=== PATIENT | female | born 1940 | race Caucasian/White ===

== ENCOUNTER 2017-08-03 05:30 | Inpatient (IN) | payer MEDICARE, OTHER ==
[2017-08-03] MEDS ORDERED: BUPIVACAINE 0.5% (SDV) 30 ML, morphine SULFATE (PF) 8 MG, EPINEPHrine 0.3 MG, KETOROLAC... IRR (06:00)
[2017-08-03] MEDS ORDERED: CEFAZOLIN 2 GM/50 ML (PMX) 50 ML IVPB (06:00)
[2017-08-03] MEDS ORDERED: TRANEXAMIC ACID 1,000 MG in DEXTROSE 5% 100 ML IVPB (06:00)
[2017-08-03] MEDS: DEXAMETHASONE 1 MG TAB PO (06:37)
[2017-08-03] MEDS ORDERED: BUPIVACAINE 0.5%/EPI (SDV) 30 ML INJ (06:42)
[2017-08-03] MEDS ORDERED: THROMBIN 5000 UNIT VIAL (06:42)
[2017-08-03] MEDS ORDERED: CA CHLORIDE 10% 10 ML SYRINGE (06:42)
[2017-08-03] MEDS ORDERED: MIDAZOLAM 1 MG/ML 2 ML INJ (06:56)
[2017-08-03] MEDS ORDERED: ROPIVACAINE 0.5 % 30 ML VIAL (06:59)
[2017-08-03] MEDS ORDERED: GLYCOPYRROLATE 0.4 MG INJ (07:00)
[2017-08-03] MEDS ORDERED: NEOSTIGMINE 3 MG/3 ML SYRINGE (07:00)
[2017-08-03] MEDS: POLYMYXIN/BACITRACIN 1L IRRIG (07:32)
[2017-08-03] MEDS ORDERED: ROCURONIUM 50 MG INJ (08:08)
[2017-08-03] MEDS ORDERED: LIDOCAINE 2% (SDV) 5 ML INJ (08:08)
[2017-08-03] MEDS ORDERED: ETOMIDATE 20 MG INJ (08:08)
[2017-08-03] MEDS ORDERED: ONDANSETRON 4 MG INJ (08:09)
[2017-08-03] MEDS ORDERED: CEFAZOLIN 1 GM INJ (08:28)
[2017-08-03] MEDS ORDERED: ZOLPIDEM 5 MG TAB PO (08:30)
[2017-08-03] MEDS ORDERED: morphine 2 MG INJ IV ×2 (08:30)
[2017-08-03] MEDS ORDERED: hydrALAzine 20 MG INJ (08:39)
[2017-08-03] MEDS: hydrALAzine 20 MG INJ IV (08:47)
[2017-08-03] MEDS: KETOROLAC 15 MG INJ IV (08:48)
[2017-08-03] MEDS: CEFAZOLIN 1 GM/50 ML (PMX) 50 ML IVPB ×2 (08:57→15:43)
[2017-08-03] MEDS ORDERED: GLUCAGON 1 MG INJ IM (09:00)
[2017-08-03] MEDS ORDERED: FENTAnyl 50 MCG/ML VIAL IV (09:00)
[2017-08-03] MEDS ORDERED: LOXAPINE SUCCINATE 25 MG CAPSULE PO (09:00)
[2017-08-03] MEDS ORDERED: DEXTROSE 50% 50 ML SYRINGE IV ×2 (09:00)
[2017-08-03] MEDS ORDERED: GLUCOSE GEL 15 GRAM TUBE PO ×2 (09:00)
[2017-08-03] MEDS ORDERED: MEPERIDINE 25 MG INJ IV (09:00)
[2017-08-03] MEDS ORDERED: SERTRALINE 50 MG TAB PO (09:00)
[2017-08-03] MEDS ORDERED: DIPHENHYDRAMINE 50 MG INJ IV (09:00)
[2017-08-03] MEDS ORDERED: GLUCOSE GEL 15 GRAM TUBE BUCCAL (09:00)
[2017-08-03] MEDS: metFORMIN 500 MG TAB PO ×2 (09:00→18:41)
[2017-08-03] MEDS ORDERED: HYDROmorphONE 1 MG/5 ML IV SYRINGE IV (09:00)
[2017-08-03] MEDS: PRIMIDONE 50 MG TAB PO ×2 (09:00→21:45)
[2017-08-03] MEDS ORDERED: ONDANSETRON 4 MG INJ IV (09:00)
[2017-08-03] MEDS: TRANEXAMIC ACID 1,000 MG in DEXTROSE 5% 100 ML IV (09:10)
[2017-08-03] MEDS: ONDANSETRON 4 MG INJ IV (10:17)
[2017-08-03] MEDS: PANTOPRAZOLE SODIUM 20 MG TABEC PO (10:36)
[2017-08-03] MEDS: DIPHENHYDRAMINE 50 MG INJ IV (10:47)
[2017-08-03] MEDS: HYDROmorphONE 0.5 MG/0.5 ML SYG IV ×2 (11:36→15:43)
[2017-08-03] MEDS: DEXAMETHASONE 2 MG TAB PO ×2 (13:14→18:39)
[2017-08-03] MEDS: ACETAMINOPHEN 500 MG TAB PO (13:14)
[2017-08-03] MEDS: GABAPENTIN 100 MG CAP PO ×2 (14:39→20:30)
[2017-08-03] MEDS: SENNA/DOCUSATE NA (8.6MG/50MG) TAB PO ×2 (14:39→20:32)
[2017-08-03] MEDS: Discontinue current oral sulfonylureas (glyburide, glipizide, and/or glimepiride) prior to XX (16:30)
[2017-08-03] MEDS: HYPOGLYCEMIA PROTOCOL when Glucose is <70 mg/dL or symptomatic <90 mg/dL. XX (16:30)
[2017-08-03] MEDS: CARBOXYMETHYLCELLULOSE 0.5% 0.1 ML OPH BOTH EYES ×2 (17:00→20:29)
[2017-08-03] MEDS: INSULIN ASPART [NOVOLOG] 3 ML PEN SC ×2 (17:55→21:00)
[2017-08-03] MEDS: CALCIUM CARBONATE 500 MG CHEW TAB PO (18:39)
[2017-08-03] MEDS: PANTOPRAZOLE (EC) 40 MG TAB PO (18:39)
[2017-08-03] MEDS: SUCRALFATE 1 GM TAB PO ×2 (18:40→20:31)
[2017-08-03] MEDS ORDERED: GABAPENTIN 300 MG CAP PO ×2 (18:55→21:00)
[2017-08-03] MEDS: OXYCODONE/ACETAMINOPHEN (5/325) TAB PO (19:33)
[2017-08-03] MEDS: LOXAPINE SUCCINATE 25 MG CAPSULE PO (20:29)
[2017-08-03] MEDS: ATORVASTATIN 10 MG TAB PO (20:31)
[2017-08-03] MEDS: SERTRALINE 50 MG TAB PO (20:31)
[2017-08-03] MEDS: ASCORBIC ACID 500 MG TAB PO (20:32)
[2017-08-03] MEDS: FERROUS SULFATE (EC) 325 MG TAB PO (20:32)
[2017-08-03] MEDS ORDERED: GABAPENTIN 100 MG CAP PO (21:00)
[2017-08-03] MEDS ORDERED: ATORVASTATIN 10 MG TAB PO (21:00)
[2017-08-04] MEDS: CEFAZOLIN 1 GM/50 ML (PMX) 50 ML IVPB (00:26)
[2017-08-04] MEDS: OXYCODONE/ACETAMINOPHEN (5/325) TAB PO ×4 (00:26→14:06)
[2017-08-04] MEDS: DEXAMETHASONE 2 MG TAB PO ×2 (00:26→05:09)
[2017-08-04] MEDS: ACCU-CHEK XX ×2 (00:37→22:02)
[2017-08-04 05:03] LABS: ADD MAN DIFF? NO
[2017-08-04 05:07] LABS: WHITE BLOOD COUNT 8.3 10^3/ul (4.8-10.8)
[2017-08-04 05:07] LABS: BASOPHILS % 0.2 % (0.0-2.0); EOSINOPHILS % 0.5 % (0.0-7.0); HEMATOCRIT 33.7 % (37.0-47.0); HEMOGLOBIN 11.1 g/dl (12.0-16.0); LYMPHOCYTES # 1.2 10^3/ul (0.8-2.9); LYMPHOCYTES % 13.9 % (15.0-51.0); MEAN CORPUSCULAR HEMOGLOBIN 30.7 pg (29.0-33.0); MEAN CORPUSCULAR HGB CONC 32.9 g/dl (32.0-37.0); MEAN CORPUSCULAR VOLUME 93.1 fl (82.0-101.0); MONOCYTE # 0.6 10^3/ul (0.3-0.9); MONOCYTES % 6.8 % (0.0-11.0); NEUTROPHIL # 6.5 10^3/ul (1.6-7.5); NEUTROPHILS % 78.1 % (39.0-77.0); PLATELET COUNT 167 10^3/UL (140-415); RED BLOOD COUNT 3.62 10^6/ul (4.20-5.40); RED CELL DISTRIBUTION WIDTH 13.2 % (11.5-14.5)
[2017-08-04 05:26] LABS: POSITIVE DIFF @See below
[2017-08-04 05:30] LABS: ALANINE AMINOTRANSFERASE 30 IU/L (13-69); ALBUMIN 2.9 g/dl (3.3-4.9); ALBUMIN/GLOBULIN RATIO 1.03; ALKALINE PHOSPHATASE 66 IU/L (42-121); ANION GAP 10 (8-16); ASPARTATE AMINO TRANSFERASE 19 IU/L (15-46); BILIRUBIN,INDIRECT 0.2 mg/dl (0-1.1); BILIRUBIN,TOTAL 0.2 mg/dl (0.2-1.3); BLOOD UREA NITROGEN 7 mg/dl (7-20); CARBON DIOXIDE 27 mmol/L (21-31); CHLORIDE 102 mmol/L (97-110); CHOL/HDL RATIO 3.1 RATIO; CHOLESTEROL 129 mg/dl (100-200); CREATININE 0.42 mg/dl (0.44-1.00); GLUCOSE 108 mg/dl (70-220); HDL CHOLESTEROL 41 mg/dl (33-92); LDL CHOLESTEROL,CALCULATED 73 mg/dl; MAGNESIUM 1.5 mg/dl (1.7-2.5); PHOSPHORUS 3.4 mg/dl (2.5-4.9); POTASSIUM 3.8 mmol/L (3.5-5.1); SODIUM 135 mmol/L (135-144); TOTAL PROTEIN 5.7 g/dl (6.1-8.1); TRIGLYCERIDES 76 mg/dl (0-149)
[2017-08-04 05:40] LABS: FREE THYROXINE INDEX (Calc) 4.13 ug/ml (0.65-3.89); T3 UPTAKE 47.5 % (23.5-40.5); T4 (THYROXINE) 8.7 ug/dl (5.5-11.0)
[2017-08-04 05:54] LABS: THYROID STIMULATING HORMONE 0.511 MIU/L (0.465-4.680)
[2017-08-04] MEDS: LEVOTHYROXINE 75 MCG TAB PO (06:30)
[2017-08-04] MEDS: PANTOPRAZOLE (EC) 40 MG TAB PO ×2 (06:30→18:21)
[2017-08-04 07:09] LABS: HEMOGLOBIN A1C 5.7 % (0-5.9)
[2017-08-04] MEDS: INSULIN ASPART [NOVOLOG] 3 ML PEN SC ×4 (07:50→21:00)
[2017-08-04] MEDS: KETOROLAC 15 MG INJ IV ×2 (07:55→18:47)
[2017-08-04] MEDS ORDERED: PANTOPRAZOLE (EC) 40 MG TAB PO (09:00)
[2017-08-04] MEDS: ASCORBIC ACID 500 MG TAB PO ×3 (09:06→21:00)
[2017-08-04] MEDS: FOLIC ACID 0.4 MG TAB PO (10:30)
[2017-08-04] MEDS: CYANOCOBALAMIN 500 MCG TAB PO (10:31)
[2017-08-04] MEDS: PRIMIDONE 50 MG TAB PO ×2 (10:32→20:30)
[2017-08-04] MEDS: MULTIVITAMINS THERAPEUTIC TAB PO (10:32)
[2017-08-04] MEDS: metFORMIN 500 MG TAB PO ×2 (10:33→18:16)
[2017-08-04] MEDS: FERROUS SULFATE (EC) 325 MG TAB PO ×2 (10:33→21:00)
[2017-08-04] MEDS: SUCRALFATE 1 GM TAB PO ×4 (10:33→20:31)
[2017-08-04] MEDS: ASPIRIN 81 MG TAB PO (10:33)
[2017-08-04] MEDS: LACTOBACILLUS RHAMNOSUS CAP PO (10:33)
[2017-08-04] MEDS: SENNA/DOCUSATE NA (8.6MG/50MG) TAB PO ×2 (10:33→22:55)
[2017-08-04] MEDS: CARBOXYMETHYLCELLULOSE 0.5% 0.1 ML OPH BOTH EYES ×4 (10:34→20:32)
[2017-08-04] MEDS: MAGNESIUM SULFATE 2 GM/50 ML 50 ML IVPB (12:16)
[2017-08-04] MEDS: GABAPENTIN 100 MG CAP PO ×2 (13:34→20:30)
[2017-08-04] MEDS: HYDROmorphONE 1 MG/ML SYG IV ×2 (15:20→22:56)
[2017-08-04] MEDS: MAGNESIUM HYDROXIDE 30ML CUP PO (15:21)
[2017-08-04] MEDS: DIPHENHYDRAMINE 50 MG INJ IV (18:47)
[2017-08-04] MEDS: DOCUSATE SODIUM 100 MG CAP PO (20:30)
[2017-08-04] MEDS: SERTRALINE 50 MG TAB PO (20:31)
[2017-08-04] MEDS: ATORVASTATIN 10 MG TAB PO (20:32)
[2017-08-04] MEDS: LOXAPINE SUCCINATE 25 MG CAPSULE PO (22:56)
[2017-08-05] MEDS: PANTOPRAZOLE (EC) 40 MG TAB PO (06:06)
[2017-08-05] MEDS: LEVOTHYROXINE 75 MCG TAB PO (06:06)
[2017-08-05] MEDS: KETOROLAC 15 MG INJ IV (06:06)
[2017-08-05] MEDS: MAGNESIUM HYDROXIDE 30ML CUP PO (06:06)
[2017-08-05] MEDS: INSULIN ASPART [NOVOLOG] 3 ML PEN SC ×2 (07:50→11:40)
[2017-08-05] MEDS: OXYCODONE/ACETAMINOPHEN (5/325) TAB PO (08:38)
[2017-08-05] MEDS: metFORMIN 500 MG TAB PO (08:38)
[2017-08-05] MEDS: LACTOBACILLUS RHAMNOSUS CAP PO (09:06)
[2017-08-05] MEDS: MULTIVITAMINS THERAPEUTIC TAB PO (09:06)
[2017-08-05] MEDS: PRIMIDONE 50 MG TAB PO (09:06)
[2017-08-05] MEDS: SENNA/DOCUSATE NA (8.6MG/50MG) TAB PO (09:06)
[2017-08-05] MEDS: FERROUS SULFATE (EC) 325 MG TAB PO (09:06)
[2017-08-05] MEDS: ASCORBIC ACID 500 MG TAB PO (09:06)
[2017-08-05] MEDS: DOCUSATE SODIUM 100 MG CAP PO (09:06)
[2017-08-05] MEDS: CYANOCOBALAMIN 500 MCG TAB PO (09:07)
[2017-08-05] MEDS: SUCRALFATE 1 GM TAB PO ×2 (09:08→13:07)
[2017-08-05] MEDS: ASPIRIN 81 MG TAB PO (09:08)
[2017-08-05] MEDS: CARBOXYMETHYLCELLULOSE 0.5% 0.1 ML OPH BOTH EYES ×2 (09:08→13:07)
[2017-08-05] MEDS: FOLIC ACID 0.4 MG TAB PO (09:08)
[2017-08-05] MEDS: NA PHOSPHATE/BIPHOS 133 ML ENEMA PR (09:49)
[2017-08-05] MEDS: MAGNESIUM CITRATE 300 ML BTL PO (11:34)
[2017-08-05] MEDS: GABAPENTIN 100 MG CAP PO (14:08)
[2017-08-05] MEDS: LACTULOSE 30ML CUP PO (14:08)
[2017-08-05] MEDS ORDERED: MINERAL OIL 133 ML ENEMA PR (16:00)
== END 2017-08-05 18:47 | disposition home or self-care (01) | DRG 483 ==
LOC: REC 05:30 → MS1 09:37
PROVIDERS: Orthopaedic Surgery
PROC: 0RRJ0J7 Replacement of Right Shoulder Joint with Synthetic Substitute, Glenoid Surface, Open Approach (ICD-10-PCS; principal; 2017-08-03 07:00)
PROC: 0RPJ0JZ Removal of Synthetic Substitute from Right Shoulder Joint, Open Approach (ICD-10-PCS; 2017-08-03 07:00)
DX: T84.098A Other mechanical complication of other internal joint prosthesis, initial encounter (principal); T84.84XA Pain due to internal orthopedic prosthetic devices, implants and grafts, initial encounter; E11.9 Type 2 diabetes mellitus without complications; E61.1 Iron deficiency; E78.5 Hyperlipidemia, unspecified; E11.40 Type 2 diabetes mellitus with diabetic neuropathy, unspecified; E03.9 Hypothyroidism, unspecified; E66.01 Morbid (severe) obesity due to excess calories; G25.81 Restless legs syndrome; G89.29 Other chronic pain; M54.9 Dorsalgia, unspecified; N31.9 Neuromuscular dysfunction of bladder, unspecified; N28.89 Other specified disorders of kidney and ureter; I10 Essential (primary) hypertension; I25.10 Atherosclerotic heart disease of native coronary artery without angina pectoris; R10.9 Unspecified abdominal pain; R19.7 Diarrhea, unspecified; R29.6 Repeated falls; W18.30XA Fall on same level, unspecified, initial encounter; Z68.35 Body mass index [BMI] 35.0-35.9, adult; Z96.611 Presence of right artificial shoulder joint; Z96.641 Presence of right artificial hip joint; Z98.1 Arthrodesis status; Z93.51 Cutaneous-vesicostomy status; Z95.5 Presence of coronary angioplasty implant and graft; Z85.41 Personal history of malignant neoplasm of cervix uteri; Z79.84 Long term (current) use of oral hypoglycemic drugs
CPT/HCPCS: 73030-RT; 74176; 80053; 80061; 82962; 83036; 83735; 84100; 84436; 84443; 84479; 85025; 86999; 87070; 87086; 87102; 87116; 88300; 93005; 97110; 97116; 97163; 97165; 97530

== ENCOUNTER 2017-08-29 22:38 | Inpatient (IN) | payer MEDICARE, OTHER ==
[2017-08-29] MEDS: ONDANSETRON 4 MG INJ IV (23:36)
[2017-08-29] MEDS: HYDROmorphONE 1 MG/ML SYG IV (23:37)
[2017-08-29] MEDS: SOD CHLORIDE 0.9% 500 ML IV (23:37)
[2017-08-29 23:40] LABS: ADD MAN DIFF? NO
[2017-08-29 23:42] LABS: WHITE BLOOD COUNT 7.4 10^3/ul (4.8-10.8)
[2017-08-29 23:42] LABS: BASOPHILS % 0.5 % (0.0-2.0); EOSINOPHILS # 0.2 10^3/ul (0.0-0.5); EOSINOPHILS % 3.1 % (0.0-7.0); HEMATOCRIT 34.3 % (37.0-47.0); HEMOGLOBIN 11.5 g/dl (12.0-16.0); LYMPHOCYTES # 1.8 10^3/ul (0.8-2.9); LYMPHOCYTES % 24.8 % (15.0-51.0); MEAN CORPUSCULAR HEMOGLOBIN 30.7 pg (29.0-33.0); MEAN CORPUSCULAR HGB CONC 33.5 g/dl (32.0-37.0); MEAN CORPUSCULAR VOLUME 91.7 fl (82.0-101.0); MEAN PLATELET VOLUME 9.5 fl (7.4-10.4); MONOCYTE # 0.8 10^3/ul (0.3-0.9); MONOCYTES % 10.9 % (0.0-11.0); NEUTROPHIL # 4.5 10^3/ul (1.6-7.5); NEUTROPHILS % 60.6 % (39.0-77.0); PLATELET COUNT 335 10^3/UL (140-415); RED BLOOD COUNT 3.74 10^6/ul (4.20-5.40); RED CELL DISTRIBUTION WIDTH 13.5 % (11.5-14.5)
[2017-08-29 23:59] LABS: INR 0.93; PARTIAL THROMBOPLASTIN TIME 22.9 Sec (25.0-35.0); PROTIME 12.5 Sec (11.9-14.9)
[2017-08-30] LABS: ALANINE AMINOTRANSFERASE 23 IU/L (13-69); ALBUMIN 3.5 g/dl (3.3-4.9); ALKALINE PHOSPHATASE 88 IU/L (42-121); ANION GAP 12 (8-16); ASPARTATE AMINO TRANSFERASE 20 IU/L (15-46); BILIRUBIN,INDIRECT 0.1 mg/dl (0-1.1); BILIRUBIN,TOTAL 0.1 mg/dl (0.2-1.3); BLOOD UREA NITROGEN 16 mg/dl (7-20); CALCIUM 9.9 mg/dl (8.4-10.2); CARBON DIOXIDE 29 mmol/L (21-31); CHLORIDE 98 mmol/L (97-110); CREATININE 0.44 mg/dl (0.44-1.00); GLUCOSE 114 mg/dl (70-220); LIPASE 17 U/L (23-300); POTASSIUM 3.8 mmol/L (3.5-5.1); SODIUM 135 mmol/L (135-144); TOTAL PROTEIN 6.4 g/dl (6.1-8.1)
[2017-08-30 01:30] LABS: ADD UMIC YES; UR ASCORBIC ACID 40 mg/dL (NEGATIVE); UR BACTERIA MANY /HPF (NONE SEEN); UR BILIRUBIN (Dip) NEGATIVE (NEGATIVE); UR BLOOD (Dip) NEGATIVE (NEGATIVE); UR CLARITY TURBID (CLEAR); UR COLOR YELLOW (YELLOW); UR GLUCOSE (Dip) NEGATIVE (NEGATIVE); UR KETONES (Dip) TRACE mg/dL (NEGATIVE); UR LEUKOCYTE ESTERASE (Dip) NEGATIVE Leu/ul (NEGATIVE); UR MUCUS MODERATE /HPF (NONE SEEN); UR NITRITE (Dip) POSITIVE (NEGATIVE); UR RBC 5 /HPF (0-5); UR SPECIFIC GRAVITY (Dip) 1.015 (1.003-1.030); UR TOTAL PROTEIN (Dip) 2+ mg/dl (NEGATIVE); UR UROBILINOGEN (Dip) NEGATIVE (NEGATIVE); UR WBC 106 /HPF (0-5)
[2017-08-30] MEDS: CEFAZOLIN 2 GM/50 ML (PMX) 50 ML IVPB (03:15)
[2017-08-30] MEDS: HYDROmorphONE 0.5 MG/0.5 ML SYG IV ×2 (03:48→12:35)
[2017-08-30] MEDS: DEXTROSE 5%-0.45% NACL 1,000 ML IV ×2 (03:49→18:00)
[2017-08-30] MEDS ORDERED: NACL 0.9% 3 ML SYG IV (06:30)
[2017-08-30] MEDS ORDERED: ALBUTEROL/IPRATROPIUM (NEB) 3 ML AMP HHN (06:30)
[2017-08-30] MEDS ORDERED: HYDROCODONE/APAP (5/325) TAB PO (06:30)
[2017-08-30] MEDS ORDERED: GLUCOSE GEL 15 GRAM TUBE BUCCAL (07:00)
[2017-08-30] MEDS ORDERED: DEXTROSE 50% 50 ML SYRINGE IV ×2 (07:00)
[2017-08-30] MEDS: PANTOPRAZOLE (EC) 40 MG TAB PO ×2 (07:00→18:00)
[2017-08-30] MEDS ORDERED: GLUCAGON 1 MG INJ IM (07:00)
[2017-08-30] MEDS: LEVOTHYROXINE 75 MCG TAB PO (07:00)
[2017-08-30] MEDS ORDERED: GLUCOSE GEL 15 GRAM TUBE PO ×2 (07:00)
[2017-08-30] MEDS: HYDROmorphONE 1 MG/ML SYG IV ×5 (07:20→21:53)
[2017-08-30] MEDS: ONDANSETRON 4 MG INJ IV ×2 (07:20→13:48)
[2017-08-30] MEDS: INSULIN ASPART [NOVOLOG] 3 ML PEN SC ×4 (08:00→21:00)
[2017-08-30] MEDS: ASCORBIC ACID 500 MG TAB PO ×2 (09:00→20:07)
[2017-08-30] MEDS: FOLIC ACID 0.4 MG TAB PO ×3 (09:00→20:07)
[2017-08-30] MEDS: SENNA TAB PO ×2 (09:00→20:08)
[2017-08-30] MEDS: LOXAPINE SUCCINATE 25 MG CAPSULE PO (09:00)
[2017-08-30] MEDS: MAGNESIUM OXIDE 400 MG TAB PO ×2 (09:00→20:08)
[2017-08-30] MEDS: PRIMIDONE 50 MG TAB PO ×2 (09:00→20:07)
[2017-08-30] MEDS: MULTIVITAMINS THERAPEUTIC TAB PO (09:00)
[2017-08-30] MEDS: SERTRALINE 100 MG TAB PO (09:00)
[2017-08-30] MEDS: CEFTRIAXONE 1 GM/50 ML (PMX) 50 ML IVPB (09:31)
[2017-08-30] MEDS: DIPHENHYDRAMINE 50 MG INJ IV (10:33)
[2017-08-30] MEDS: ACETAMINOPHEN 1000MG/100ML IV 100 ML IVPB ×3 (10:36→21:47)
[2017-08-30] MEDS: GABAPENTIN 100 MG CAP PO (15:36)
[2017-08-30] MEDS ORDERED: HYDROmorphONE 1 MG/ML SYG IV (16:00)
[2017-08-30] MEDS: LEVOFLOXACIN 750MG/D5W (PMX) 150 ML IVPB (20:08)
[2017-08-30] MEDS: ATORVASTATIN 10 MG TAB PO (20:08)
[2017-08-30] MEDS: GABAPENTIN 300 MG CAP PO (20:09)
[2017-08-31] MEDS: ACCU-CHEK XX (02:00)
[2017-08-31] MEDS: HYDROmorphONE 1 MG/ML SYG IV ×4 (02:33→17:16)
[2017-08-31] MEDS: ACETAMINOPHEN 1000MG/100ML IV 100 ML IVPB ×4 (03:38→21:20)
[2017-08-31] MEDS: LEVOTHYROXINE 75 MCG TAB PO (05:38)
[2017-08-31] MEDS: PANTOPRAZOLE (EC) 40 MG TAB PO ×2 (05:38→17:20)
[2017-08-31] MEDS: DIPHENHYDRAMINE 25 MG CAP PO (05:38)
[2017-08-31 05:53] LABS: ADD MAN DIFF? NO
[2017-08-31 06:02] LABS: BASOPHILS % 0.6 % (0.0-2.0); EOSINOPHILS # 0.2 10^3/ul (0.0-0.5); EOSINOPHILS % 3.3 % (0.0-7.0); HEMATOCRIT 32.7 % (37.0-47.0); HEMOGLOBIN 10.9 g/dl (12.0-16.0); LYMPHOCYTES # 1.3 10^3/ul (0.8-2.9); LYMPHOCYTES % 18.4 % (15.0-51.0); MEAN CORPUSCULAR HEMOGLOBIN 31.2 pg (29.0-33.0); MEAN CORPUSCULAR HGB CONC 33.3 g/dl (32.0-37.0); MEAN CORPUSCULAR VOLUME 93.7 fl (82.0-101.0); MEAN PLATELET VOLUME 10.2 fl (7.4-10.4); MONOCYTE # 0.8 10^3/ul (0.3-0.9); MONOCYTES % 11.7 % (0.0-11.0); NEUTROPHIL # 4.5 10^3/ul (1.6-7.5); NEUTROPHILS % 65.6 % (39.0-77.0); PLATELET COUNT 295 10^3/UL (140-415); RED BLOOD COUNT 3.49 10^6/ul (4.20-5.40); RED CELL DISTRIBUTION WIDTH 13.4 % (11.5-14.5)
[2017-08-31 06:02] LABS: WHITE BLOOD COUNT 6.9 10^3/ul (4.8-10.8)
[2017-08-31] MEDS: DEXTROSE 5%-0.45% NACL 1,000 ML IV ×2 (06:10→17:18)
[2017-08-31 06:20] LABS: ALANINE AMINOTRANSFERASE 23 IU/L (13-69); ALBUMIN/GLOBULIN RATIO 1.11; ALKALINE PHOSPHATASE 72 IU/L (42-121); ANION GAP 12 (8-16); ASPARTATE AMINO TRANSFERASE 16 IU/L (15-46); BILIRUBIN,INDIRECT 0.1 mg/dl (0-1.1); BILIRUBIN,TOTAL 0.1 mg/dl (0.2-1.3); BLOOD UREA NITROGEN 11 mg/dl (7-20); CALCIUM 9.2 mg/dl (8.4-10.2); CARBON DIOXIDE 27 mmol/L (21-31); CHLORIDE 99 mmol/L (97-110); CHOL/HDL RATIO 3.9 RATIO; CHOLESTEROL 130 mg/dl (100-200); CREATININE 0.47 mg/dl (0.44-1.00); GLUCOSE 115 mg/dl (70-220); HDL CHOLESTEROL 33 mg/dl (33-92); LDL CHOLESTEROL,CALCULATED 83 mg/dl; MAGNESIUM 1.8 mg/dl (1.7-2.5); PHOSPHORUS 3.8 mg/dl (2.5-4.9); POTASSIUM 4.1 mmol/L (3.5-5.1); SODIUM 134 mmol/L (135-144); TOTAL PROTEIN 5.7 g/dl (6.1-8.1); TRIGLYCERIDES 71 mg/dl (0-149)
[2017-08-31] MEDS: INSULIN ASPART [NOVOLOG] 3 ML PEN SC ×4 (08:10→21:00)
[2017-08-31 09:00] LABS: HEMOGLOBIN A1C 5.5 % (0-5.9)
[2017-08-31] MEDS: SENNA TAB PO ×2 (09:00→21:21)
[2017-08-31] MEDS: ASCORBIC ACID 500 MG TAB PO ×2 (09:07→21:21)
[2017-08-31] MEDS: SERTRALINE 100 MG TAB PO (09:07)
[2017-08-31] MEDS: MULTIVITAMINS THERAPEUTIC TAB PO (09:07)
[2017-08-31] MEDS: MAGNESIUM OXIDE 400 MG TAB PO ×2 (09:07→21:21)
[2017-08-31] MEDS: FOLIC ACID 0.4 MG TAB PO ×3 (09:08→21:38)
[2017-08-31] MEDS: LOXAPINE SUCCINATE 25 MG CAPSULE PO (09:09)
[2017-08-31] MEDS: GABAPENTIN 100 MG CAP PO (15:08)
[2017-08-31] MEDS: PRIMIDONE 50 MG TAB PO ×2 (15:09→21:22)
[2017-08-31] MEDS: ATORVASTATIN 10 MG TAB PO (21:21)
[2017-08-31] MEDS: GABAPENTIN 300 MG CAP PO (21:22)
[2017-09-01] MEDS: ACCU-CHEK XX (02:00)
[2017-09-01] MEDS: ACETAMINOPHEN 1000MG/100ML IV 100 ML IVPB ×3 (03:57→15:09)
[2017-09-01] MEDS: PANTOPRAZOLE (EC) 40 MG TAB PO (06:55)
[2017-09-01] MEDS: LEVOTHYROXINE 75 MCG TAB PO (06:55)
[2017-09-01] MEDS: LOXAPINE SUCCINATE 25 MG CAPSULE PO (07:30)
[2017-09-01] MEDS: INSULIN ASPART [NOVOLOG] 3 ML PEN SC ×2 (07:50→11:40)
[2017-09-01] MEDS: ACETAMINOPHEN 325 MG TAB PO (07:51)
[2017-09-01] MEDS: PRIMIDONE 50 MG TAB PO (08:36)
[2017-09-01] MEDS: MULTIVITAMINS THERAPEUTIC TAB PO (08:37)
[2017-09-01] MEDS: SENNA TAB PO (08:37)
[2017-09-01] MEDS: ASCORBIC ACID 500 MG TAB PO (08:37)
[2017-09-01] MEDS: SERTRALINE 100 MG TAB PO (08:37)
[2017-09-01] MEDS: FOLIC ACID 0.4 MG TAB PO ×2 (08:38→13:56)
[2017-09-01] MEDS: DEXTROSE 5%-0.45% NACL 1,000 ML IV (08:38)
[2017-09-01] MEDS: MAGNESIUM OXIDE 400 MG TAB PO (08:38)
[2017-09-01] MEDS: GABAPENTIN 100 MG CAP PO (13:56)
[2017-09-01] MEDS: ENALAPRILAT 1.25 MG INJ IV (13:56)
== END 2017-09-01 17:10 | disposition home or self-care (01) | DRG 560 ==
LOC: E/R 22:38 → MS1 08-30 02:16
PROC: 0PSCXZZ Reposition Right Humeral Head, External Approach (ICD-10-PCS; principal; 2017-08-31)
DX: T84.028A Dislocation of other internal joint prosthesis, initial encounter (principal); N39.0 Urinary tract infection, site not specified; Z96.611 Presence of right artificial shoulder joint; D50.9 Iron deficiency anemia, unspecified; E03.9 Hypothyroidism, unspecified; E78.5 Hyperlipidemia, unspecified; G25.81 Restless legs syndrome; M54.9 Dorsalgia, unspecified; B96.20 Unspecified Escherichia coli [E. coli] as the cause of diseases classified elsewhere; B96.5 Pseudomonas (aeruginosa) (mallei) (pseudomallei) as the cause of diseases classified elsewhere; Y84.8 Other medical procedures as the cause of abnormal reaction of the patient, or of later complication, without mention of misadventure at the time of the procedure; Y92.009 Unspecified place in unspecified non-institutional (private) residence as the place of occurrence of the external cause; Z79.4 Long term (current) use of insulin; Z79.82 Long term (current) use of aspirin
CPT/HCPCS: 36415; 73030-RT; 80053; 80061; 81001; 82962; 83036; 83690; 83735; 84100; 85025; 85610; 85730; 87040; 87086; 96374; 96375; 99285-25

== ENCOUNTER 2018-09-17 13:23 | Observation (INO) | payer MEDICARE, OTHER ==
[2018-09-17] MEDS: SOD CHLORIDE 0.9% 500 ML IV (14:16)
[2018-09-17] MEDS: ONDANSETRON 4 MG INJ IV ×3 (14:16→17:58)
[2018-09-17] MEDS: HYDROmorphONE 1 MG/ML SYG IV ×2 (14:17→17:42)
[2018-09-17 14:18] LABS: ADD MAN DIFF? NO
[2018-09-17 14:20] LABS: BASOPHILS % 0.4 % (0.0-2.0); EOSINOPHILS # 0.3 10^3/ul (0.0-0.5); HEMATOCRIT 37.2 % (37.0-47.0); HEMOGLOBIN 12.2 g/dl (12.0-16.0); LYMPHOCYTES # 1.9 10^3/ul (0.8-2.9); LYMPHOCYTES % 28.5 % (15.0-51.0); MEAN CORPUSCULAR HEMOGLOBIN 30.5 pg (29.0-33.0); MEAN CORPUSCULAR HGB CONC 32.8 g/dl (32.0-37.0); MEAN PLATELET VOLUME 9.7 fl (7.4-10.4); MONOCYTE # 0.8 10^3/ul (0.3-0.9); MONOCYTES % 12.3 % (0.0-11.0); NEUTROPHIL # 3.7 10^3/ul (1.6-7.5); NEUTROPHILS % 54.5 % (39.0-77.0); PLATELET COUNT 272 10^3/UL (140-415); RED CELL DISTRIBUTION WIDTH 14.3 % (11.5-14.5)
[2018-09-17 14:20] LABS: WHITE BLOOD COUNT 6.8 10^3/ul (4.8-10.8)
[2018-09-17 14:42] LABS: INR 0.96; PARTIAL THROMBOPLASTIN TIME 24.9 Sec (23.0-35.0); PROTIME 12.9 Sec (11.9-14.9)
[2018-09-17 14:45] LABS: ALANINE AMINOTRANSFERASE 45 IU/L (13-69); ALBUMIN 3.5 g/dl (3.3-4.9); ALKALINE PHOSPHATASE 70 IU/L (42-121); ANION GAP 5 (5-13); ASPARTATE AMINO TRANSFERASE 23 IU/L (15-46); BILIRUBIN,INDIRECT 0.4 mg/dl (0-1.1); BILIRUBIN,TOTAL 0.4 mg/dl (0.2-1.3); BLOOD UREA NITROGEN 15 mg/dl (7-20); CALCIUM 9.6 mg/dl (8.4-10.2); CARBON DIOXIDE 28 mmol/L (21-31); CHLORIDE 101 mmol/L (97-110); CREATININE 0.48 mg/dl (0.44-1.00); GLUCOSE 101 mg/dl (70-220); LIPASE < 10 U/L (23-300); POTASSIUM 4.8 mmol/L (3.5-5.1); SODIUM 134 mmol/L (135-144); TOTAL PROTEIN 6.4 g/dl (6.1-8.1)
[2018-09-17] MEDS ORDERED: ACETAMINOPHEN 325 MG TAB PO (16:30)
[2018-09-17] MEDS ORDERED: ONDANSETRON 4 MG INJ IV (16:30)
[2018-09-17] MEDS ORDERED: IBUPROFEN 600 MG TAB PO (17:30)
[2018-09-17] MEDS ORDERED: morphine 2 MG INJ IV (17:30)
[2018-09-17] MEDS ORDERED: NACL 0.9% 3 ML SYG IV (17:30)
[2018-09-17] MEDS: KETOROLAC 15 MG INJ IV (17:42)
[2018-09-17] MEDS ORDERED: DEXTROSE 50% 50 ML SYRINGE IV ×2 (18:00)
[2018-09-17] MEDS ORDERED: GLUCOSE GEL 15 GRAM TUBE PO ×2 (18:00)
[2018-09-17] MEDS ORDERED: GLUCAGON 1 MG INJ IM (18:00)
[2018-09-17] MEDS ORDERED: GLUCOSE GEL 15 GRAM TUBE BUCCAL (18:00)
[2018-09-17] MEDS: ASPIRIN (EC) 81 MG TAB PO (20:55)
[2018-09-17] MEDS: DOCUSATE SODIUM 100 MG CAP PO (20:55)
[2018-09-17] MEDS: ATORVASTATIN 10 MG TAB PO (20:55)
[2018-09-17] MEDS: SERTRALINE 50 MG TAB PO (20:55)
[2018-09-17] MEDS: PANTOPRAZOLE (EC) 40 MG TAB PO (20:55)
[2018-09-17] MEDS: GABAPENTIN 100 MG CAP PO (20:55)
[2018-09-17] MEDS: MAGNESIUM OXIDE 400 MG TAB PO (20:56)
[2018-09-18] MEDS: HYDROCODONE/APAP (5/325) TAB PO ×3 (05:36→22:56)
[2018-09-18 06:51] LABS: ADD MAN DIFF? NO
[2018-09-18 06:53] LABS: BASOPHILS % 0.8 % (0.0-2.0); EOSINOPHILS # 0.2 10^3/ul (0.0-0.5); HEMATOCRIT 34.5 % (37.0-47.0); HEMOGLOBIN 11.4 g/dl (12.0-16.0); LYMPHOCYTES # 1.7 10^3/ul (0.8-2.9); LYMPHOCYTES % 34.4 % (15.0-51.0); MEAN CORPUSCULAR HEMOGLOBIN 31.1 pg (29.0-33.0); MEAN CORPUSCULAR VOLUME 94.3 fl (82.0-101.0); MEAN PLATELET VOLUME 9.6 fl (7.4-10.4); MONOCYTE # 0.7 10^3/ul (0.3-0.9); NEUTROPHIL # 2.4 10^3/ul (1.6-7.5); NEUTROPHILS % 47.4 % (39.0-77.0); PLATELET COUNT 251 10^3/UL (140-415); RED BLOOD COUNT 3.66 10^6/ul (4.20-5.40); RED CELL DISTRIBUTION WIDTH 14.4 % (11.5-14.5)
[2018-09-18 06:53] LABS: WHITE BLOOD COUNT 5.1 10^3/ul (4.8-10.8)
[2018-09-18 07:13] LABS: ALANINE AMINOTRANSFERASE 42 IU/L (13-69); ALBUMIN 3.1 g/dl (3.3-4.9); ALBUMIN/GLOBULIN RATIO 1.03; ALKALINE PHOSPHATASE 68 IU/L (42-121); ANION GAP 5 (5-13); ASPARTATE AMINO TRANSFERASE 23 IU/L (15-46); BILIRUBIN,INDIRECT 0.5 mg/dl (0-1.1); BILIRUBIN,TOTAL 0.5 mg/dl (0.2-1.3); BLOOD UREA NITROGEN 15 mg/dl (7-20); CALCIUM 9.4 mg/dl (8.4-10.2); CARBON DIOXIDE 27 mmol/L (21-31); CHLORIDE 104 mmol/L (97-110); CREATININE 0.45 mg/dl (0.44-1.00); GLUCOSE 104 mg/dl (70-220); POTASSIUM 4.4 mmol/L (3.5-5.1); SODIUM 136 mmol/L (135-144); TOTAL PROTEIN 6.1 g/dl (6.1-8.1)
[2018-09-18 07:36] LABS: HEMOGLOBIN A1C 5.5 % (0-5.9)
[2018-09-18] MEDS: POLYETHYLENE GLYCOL 17 GM PACKET PO (08:10)
[2018-09-18] MEDS: PANTOPRAZOLE (EC) 40 MG TAB PO ×2 (08:10→21:29)
[2018-09-18] MEDS: HYDROmorphONE 0.5 MG/0.5 ML SYG IV ×4 (08:10→21:32)
[2018-09-18] MEDS: DOCUSATE SODIUM 100 MG CAP PO ×2 (08:10→21:30)
[2018-09-18] MEDS: LEVOTHYROXINE 75 MCG TAB PO (08:11)
[2018-09-18] MEDS: metFORMIN 500 MG TAB PO (08:11)
[2018-09-18] MEDS: MAGNESIUM OXIDE 400 MG TAB PO ×2 (08:11→21:29)
[2018-09-18] MEDS: ENOXAPARIN 30 MG/0.3 ML SYG SC (08:18)
[2018-09-18] MEDS: LOXAPINE SUCCINATE 25 MG CAPSULE PO (21:20)
[2018-09-18] MEDS: ASPIRIN (EC) 81 MG TAB PO (21:29)
[2018-09-18] MEDS: ATORVASTATIN 10 MG TAB PO (21:29)
[2018-09-18] MEDS: SERTRALINE 50 MG TAB PO (21:30)
[2018-09-18] MEDS: GABAPENTIN 100 MG CAP PO (21:30)
[2018-09-18] MEDS: LOXAPINE 50 MG PO (22:46)
[2018-09-19] MEDS: LEVOTHYROXINE 75 MCG TAB PO (06:12)
[2018-09-19] MEDS: POLYETHYLENE GLYCOL 17 GM PACKET PO (06:12)
[2018-09-19] MEDS: HYDROmorphONE 0.5 MG/0.5 ML SYG IV ×3 (07:49→14:46)
[2018-09-19] MEDS: PANTOPRAZOLE (EC) 40 MG TAB PO (08:23)
[2018-09-19] MEDS: DOCUSATE SODIUM 100 MG CAP PO (08:23)
[2018-09-19] MEDS: metFORMIN 500 MG TAB PO (08:23)
[2018-09-19] MEDS: MAGNESIUM OXIDE 400 MG TAB PO (08:23)
[2018-09-19] MEDS: ENOXAPARIN 30 MG/0.3 ML SYG SC (08:26)
[2018-09-19] MEDS: HYDROCODONE/APAP (5/325) TAB PO (09:02)
[2018-09-19] MEDS: BISACODYL (EC) 5 MG TAB PO (15:22)
[2018-09-19] MEDS: LISINOPRIL 10 MG TAB PO (15:26)
== END 2018-09-19 16:10 | disposition home or self-care (01) ==
LOC: E/R 13:23 → 2NE 16:02
DX: M16.12 Unilateral primary osteoarthritis, left hip (principal); G89.4 Chronic pain syndrome; K59.00 Constipation, unspecified; I10 Essential (primary) hypertension; E03.9 Hypothyroidism, unspecified; I25.10 Atherosclerotic heart disease of native coronary artery without angina pectoris; Z95.5 Presence of coronary angioplasty implant and graft; E11.9 Type 2 diabetes mellitus without complications; Z79.84 Long term (current) use of oral hypoglycemic drugs; Z79.82 Long term (current) use of aspirin
CPT/HCPCS: 36415; 73700; 74176; 80053; 82962; 83036; 83690; 85025; 85610; 85730; 96374; 96375; 97110; 97163; 99285-25